=== PATIENT | female | born 2000 | race Hispanic/Latino ===

== ENCOUNTER 2023-10-14 12:22 | Emergency (ER) | payer OTHER ==
[~2023-10-14] VITALS: Ht 170.2 cm; Wt 120.6 kg
[2023-10-14 12:35] VITALS: BP 141/80
== END 2023-10-14 12:48 | disposition other institution, planned readmission (95) ==
LOC: ED 12:22
DX: O26.899 Other specified pregnancy related conditions, unspecified trimester (principal); R42 Dizziness and giddiness; Z3A.00 Weeks of gestation of pregnancy not specified